=== PATIENT | female | born 1960 | race Caucasian/White ===

== ENCOUNTER 2019-10-29 18:05 | Emergency (ER) | payer OTHER ==
[~2019-10-29] VITALS: Ht 162.6 cm; Wt 77.1 kg
== END 2019-10-29 21:19 | disposition home or self-care (01) ==
LOC: ER 18:05
DX: B34.9 Viral infection, unspecified (principal)

== ENCOUNTER 2022-08-11 08:21 | Emergency (ER) | payer OTHER ==
[~2022-08-11] VITALS: Ht 162.6 cm; Wt 78.0 kg
== END 2022-08-11 09:13 | disposition home or self-care (01) ==
LOC: ER 08:21
DX: M43.6 Torticollis (principal); Z88.8 Allergy status to other drugs, medicaments and biological substances

== ENCOUNTER 2023-02-17 21:36 | Emergency (ER) | payer OTHER ==
[~2023-02-17] VITALS: Ht 162.6 cm; Wt 78.5 kg
== END 2023-02-17 22:37 | disposition home or self-care (01) ==
LOC: ER 21:36
DX: T63.441A Toxic effect of venom of bees, accidental (unintentional), initial encounter (principal); Y92.9 Unspecified place or not applicable

== ENCOUNTER 2023-08-24 11:40 | Outpatient (CLI) | payer OTHER | END 2023-08-24 11:46 | disposition home or self-care (01) | LOC: RAD 11:40 | PROVIDERS: ATTEND Specialist | DX: M79.661 Pain in right lower leg (principal); Z88.5 Allergy status to narcotic agent ==